=== PATIENT | female | born 1965 | race Caucasian/White ===

== ENCOUNTER → 2016-09-24 | Outpatient (REF) | payer BC ==
[~2016-09-24] MED LIST: FLUO20CA8 PO; LISI5TAB PO; MEGE20TA2 PO; METF1000 PO; VITA200015 PO
[2016-09-25 15:29] LABS: THYROID PEROXIDASE ANTIBODY < 28.0 U/ML (<60.0)
== END ==
LOC: M LAB REF 15:35
PROVIDERS: ATTEND Nurse Practitioner Adult Health
DX: E05.90 Thyrotoxicosis, unspecified without thyrotoxic crisis or storm (principal)

== ENCOUNTER → 2017-02-18 | Outpatient (REF) | payer BC | LOC: M LAB REF 17:12 | PROVIDERS: ATTEND Nurse Practitioner Adult Health | DX: E05.90 Thyrotoxicosis, unspecified without thyrotoxic crisis or storm (principal) ==

== ENCOUNTER → 2017-05-08 | Outpatient (CLI) | payer BC ==
[~2017-05-08] MED LIST changes: -FLUO20CA8 PO; +ISOVUE-370 76% 100ML VIAL (Q9967) As Ordered; -LISI5TAB PO; -MEGE20TA2 PO; -METF1000 PO; -VITA200015 PO
== END ==
LOC: M RAD 14:20
DX: Q89.2 Congenital malformations of other endocrine glands (principal)
CPT/HCPCS: Q9967

== ENCOUNTER → 2017-06-28 | Outpatient (REF) | payer BC | LOC: M LAB REF 17:15 | DX: N30.01 Acute cystitis with hematuria (principal) | CPT/HCPCS: 87186 ==

== ENCOUNTER 2017-07-14 05:41 | Day surgery (SDC) | payer BC ==
[2017-07-14 06:18] LABS: HEMATOCRIT 44.2 % (36.0-47.0); HEMOGLOBIN 14.3 g/dl (12.0-16.0); MEAN CORPUSCULAR HEMOGLOBIN 29.2 pg (27.0-33.0); MEAN CORPUSCULAR HGB CONC 32.4 g/dl (32.0-36.5); MEAN CORPUSCULAR VOLUME 90.4 fl (80.0-96.0); RED BLOOD COUNT 4.89 10^6/uL (4.00-5.40); RED CELL DISTRIBUTION WIDTH 14.9 % (11.5-14.5); WHITE BLOOD COUNT 7.8 10^3/uL (4.0-10.0)
[2017-07-14 06:36] LABS: PLATELET COUNT, AUTOMATED 75 10^3/uL (150-450)
[2017-07-14] MEDS ORDERED: ROCURONIUM BROMIDE 50 MG/5 ML VIAL As Ordered (06:39)
[2017-07-14] MEDS ORDERED: PROPOFOL 200 MG/20 ML VIAL As Ordered (06:39)
[2017-07-14] MEDS ORDERED: LIDOCAINE 2% INJ 100 MG/5 ML SDV (FOR ANES.) As Ordered (06:40)
[2017-07-14] MEDS ORDERED: fentaNYL 100 MCG/2 ML INJECTION (J3010) As Ordered (06:41)
[2017-07-14] MEDS ORDERED: MIDAZOLAM INJ 2 MG/2 ML VIAL (J2250) As Ordered (06:41)
[2017-07-14] MEDS ORDERED: dexameTHASONE 4 MG/ML 1ML VIAL (J1100) As Ordered (06:42)
[2017-07-14] MEDS: LR 1,000 ML IV (07:05)
[2017-07-14] MEDS ORDERED: HYDROCORTISONE 100 MG/2 ML VIAL (J1720) As Ordered (07:36)
[2017-07-14] MEDS ORDERED: SUCCINYLCHOLINE 100 MG/5 ML SYRINGE (J0330) As Ordered (07:37)
[2017-07-14] MEDS: LIDOCAINE W/EPINEPHRINE 1% 20ML VIAL As Ordered (07:57)
[2017-07-14] MEDS ORDERED: GLYCOPYRROLATE INJ 0.2 MG/ML 2 ML VIAL As Ordered (08:45)
[2017-07-14] MEDS ORDERED: ONDANSETRON 4MG/2ML VIAL (J2405) As Ordered (08:46)
[2017-07-14] MEDS ORDERED: PHENYLEPHRINE INJ 10MG/ML VIAL (J2370) As Ordered (08:46)
[2017-07-14] MEDS ORDERED: KETOROLAC 60 MG/2 ML VIAL (J1885) As Ordered (08:46)
[2017-07-14] MEDS ORDERED: NEOSTIGMINE 10 MG/10 ML VIAL (J2710) As Ordered (08:52)
[2017-07-14] MEDS: BACITRACIN OINT 30GM As Ordered (09:00)
[2017-07-14] MEDS ORDERED: PERCOCET 5MG/325MG TAB As Ordered (09:40)
[2017-07-14] MEDS: PERCOCET 5MG/325MG TAB PO (09:47)
[2017-07-14] MEDS ORDERED: ONDANSETRON 4MG/2ML VIAL (J2405) IV (10:00)
[2017-07-14] MEDS ORDERED: LR 1,000 ML IV (10:00)
[2017-07-14] MEDS ORDERED: fentaNYL 100 MCG/2 ML INJECTION (J3010) IV (10:00)
== END 2017-07-14 11:22 | disposition home or self-care (01) ==
LOC: M SDC 05:41
DX: Q89.2 Congenital malformations of other endocrine glands (principal); I10 Essential (primary) hypertension; E11.9 Type 2 diabetes mellitus without complications; G47.30 Sleep apnea, unspecified; Z98.84 Bariatric surgery status; Z79.52 Long term (current) use of systemic steroids; Z87.891 Personal history of nicotine dependence; Z88.2 Allergy status to sulfonamides; Z88.1 Allergy status to other antibiotic agents; F32.9 Major depressive disorder, single episode, unspecified; E03.9 Hypothyroidism, unspecified
CPT/HCPCS: 60280

== ENCOUNTER → 2017-07-19 | Outpatient (REF) | payer BC | LOC: M LAB REF 09:55 | DX: N39.0 Urinary tract infection, site not specified (principal) | CPT/HCPCS: 87186 ==

== ENCOUNTER → 2018-08-18 | Outpatient (REF) | payer BC ==
[~2018-08-18] MED LIST changes: +FLUO20CA8 PO; +FLUO40CA PO; -ISOVUE-370 76% 100ML VIAL (Q9967) As Ordered; +LEG1TAB PO; +LISI5TAB PO; +MAGN64TASA PO; +MEGE20TA2 PO; +METF1000 PO; +PRED20TA PO; +VITA200015 PO
== END ==
LOC: M LAB REF 16:46
PROVIDERS: ATTEND Nurse Practitioner Adult Health
DX: L24.9 Irritant contact dermatitis, unspecified cause (principal)

== ENCOUNTER 2019-03-11 06:59 | Outpatient (CLI) | payer BC ==
[~2019-03-11] VITALS: Ht 170.2 cm; Wt 108.5 kg
[2019-03-11] VITALS (9 sets, daily range): BP systolic 100–134; BP diastolic 61–74
[2019-03-11] MEDS ORDERED: ACETAMINOPHEN 650 MG PO PO ONE (08:00)
[2019-03-11] MEDS ORDERED: diphenhydrAMINE 25 MG PO PO ONE (08:00)
[2019-03-11] MEDS ORDERED: IMMUNE GLOBULIN 10% 40 GM in IV 1 EA IV ONE (08:30)
[2019-03-11] MEDS ORDERED: IMMUNE GLOBULIN 10% 80 GM in IV 1 EA IV ONE (08:30)
[2019-03-11] MEDS ORDERED: IMMUNE GLOBULIN 10% 20 GM in IV 1 EA IV ONE (08:30)
[2019-03-11] MEDS ORDERED: IMMUN40IV IV (08:44)
== END 2019-03-11 14:30 | disposition home or self-care (01) ==
LOC: M INFU 06:59
PROVIDERS: ATTEND Internal Medicine Hematology & Oncology
DX: D69.6 Thrombocytopenia, unspecified (principal); Z88.1 Allergy status to other antibiotic agents; Z88.2 Allergy status to sulfonamides
CPT/HCPCS: J1459 ×2

== ENCOUNTER 2019-03-12 07:30 | Outpatient (CLI) | payer BC ==
[~2019-03-12] VITALS: Ht 170.2 cm; Wt 108.5 kg
[2019-03-12] VITALS (9 sets, daily range): BP systolic 101–133; BP diastolic 55–93
[~2019-03-12 07:30] MED LIST changes: +IMMUN40IV IV
[2019-03-12] MEDS ORDERED: diphenhydrAMINE 25 MG CAP As Ordered ONE (08:09)
[2019-03-12] MEDS ORDERED: ACETAMINOPHEN TAB 650MG DOSE (2X325MG) As Ordered ONE (08:09)
[2019-03-12] MEDS ORDERED: diphenhydrAMINE 25 MG CAP PO ONE (08:15)
[2019-03-12] MEDS ORDERED: ACETAMINOPHEN TAB 650MG DOSE (2X325MG) PO ONE (08:15)
[2019-03-12] MEDS ORDERED: IMMUNE GLOBULIN 10% 80 GM in IV 1 EA IV ONE (08:45)
[2019-03-12] MEDS ORDERED: IMMUNE GLOBULIN 10% 40 GM in IV 1 EA IV ONE (08:45)
[2019-03-12] MEDS ORDERED: IMMUNE GLOBULIN 10% 20 GM in IV 1 EA IV ONE (08:45)
== END 2019-03-12 13:40 | disposition home or self-care (01) ==
LOC: M INFU 07:30
PROVIDERS: ATTEND Internal Medicine Hematology
DX: D69.6 Thrombocytopenia, unspecified (principal); Z88.1 Allergy status to other antibiotic agents; Z88.2 Allergy status to sulfonamides
CPT/HCPCS: 96365; 96366; J1459

== ENCOUNTER 2019-04-29 07:35 | Outpatient (CLI) | payer BC ==
[~2019-04-29] VITALS: Ht 170.2 cm; Wt 108.9 kg
[2019-04-29] VITALS (8 sets, daily range): BP systolic 93–127; BP diastolic 49–69
[2019-04-29] MEDS ORDERED: diphenhydrAMINE INJ 50MG/ML VIAL (J1200) IV ONE (08:00)
[2019-04-29] MEDS ORDERED: IMMUNE GLOBULIN 10% 20 GM in IV 1 EA IV ONE ×2 (08:00→08:15)
[2019-04-29] MEDS ORDERED: ACETAMINOPHEN TAB 650MG DOSE (2X325MG) PO ONE (08:00)
[2019-04-29] MEDS ORDERED: IMMUNE GLOBULIN 10% 80 GM in IV 1 EA IV ONE ×2 (08:00→08:30)
[2019-04-29] MEDS ORDERED: IMMUNE GLOBULIN 10% 10 GM in IV 1 EA IV ONE (08:15)
[2019-04-29 08:17] LABS: BASO % 0.4 % (0.0-1.0); EOS # 0.1 10^3/uL (0.0-0.5); HEMATOCRIT 38.3 % (36.0-47.0); HEMOGLOBIN 12.3 g/dl (12.0-15.5); LYMPH # 0.7 10^3/uL (1.5-5.0); LYMPH % 27.2 % (24.0-44.0); MEAN CORPUSCULAR HEMOGLOBIN 29.9 pg (27.0-33.0); MEAN CORPUSCULAR HGB CONC 32.1 g/dl (32.0-36.5); MEAN CORPUSCULAR VOLUME 93.2 fl (80.0-96.0); MONO # 0.2 10^3/uL (0.0-0.8); MONO % 6.7 % (0.0-5.0); NEUTROPHILS # 1.6 10^3/uL (1.5-8.5); NEUTROPHILS % 63.3 % (36.0-66.0); RED BLOOD COUNT 4.11 10^6/uL (4.00-5.40); WHITE BLOOD COUNT 2.5 10^3/uL (4.0-10.0)
[2019-04-29 08:28] LABS: PLATELET COUNT, AUTOMATED 40 10^3/uL (150-450)
[2019-04-29 08:40] LABS: ALBUMIN 3.3 GM/DL (3.2-5.2); ALT/SGPT 27 U/L (12-78); BILIRUBIN,TOTAL 0.5 MG/DL (0.2-1.0); BLOOD UREA NITROGEN 23 MG/DL (7-18); CALCIUM LEVEL 8.4 MG/DL (8.5-10.1); CARBON DIOXIDE LEVEL 31 MEQ/L (21-32); CHLORIDE LEVEL 107 MEQ/L (98-107); CREATININE FOR GFR 0.62 MG/DL (0.55-1.30); GLOMERULAR FILTRATION RATE > 60.0 (>51); GLUCOSE, FASTING 86 MG/DL (70-100); POTASSIUM SERUM 4.3 MEQ/L (3.5-5.1); SODIUM LEVEL 144 MEQ/L (136-145); TOTAL PROTEIN 6.8 GM/DL (6.4-8.2)
== END 2019-04-29 14:45 | disposition home or self-care (01) ==
LOC: M INFU 07:35
PROVIDERS: ATTEND Internal Medicine Hematology & Oncology
DX: D69.3 Immune thrombocytopenic purpura (principal); Z88.1 Allergy status to other antibiotic agents; Z88.2 Allergy status to sulfonamides
CPT/HCPCS: 36415; 80053; 85025; 85049; 85055; 96365; 96366; 96375; J1200; J1459

== ENCOUNTER 2019-04-30 07:00 | Outpatient (CLI) | payer BC ==
[2019-04-30] VITALS (8 sets, daily range): BP systolic 96–136; BP diastolic 55–88
[~2019-04-30] VITALS: Ht 170.2 cm; Wt 108.9 kg
[2019-04-30] MEDS ORDERED: diphenhydrAMINE INJ 50MG/ML VIAL (J1200) IV ONE (07:15)
[2019-04-30] MEDS ORDERED: ACETAMINOPHEN TAB 650MG DOSE (2X325MG) PO ONE (07:15)
[2019-04-30] MEDS ORDERED: IMMUNE GLOBULIN 10% 80 GM in IV 1 EA IV ONE (07:30)
[2019-04-30] MEDS ORDERED: IMMUNE GLOBULIN 10% 10 GM in IV 1 EA IV ONE (07:30)
[2019-04-30] MEDS ORDERED: IMMUNE GLOBULIN 10% 20 GM in IV 1 EA IV ONE (07:30)
== END 2019-04-30 13:40 | disposition home or self-care (01) ==
LOC: M INFU 07:00
PROVIDERS: ATTEND Internal Medicine Hematology & Oncology
DX: D69.3 Immune thrombocytopenic purpura (principal); Z88.1 Allergy status to other antibiotic agents; Z88.2 Allergy status to sulfonamides
CPT/HCPCS: 96365; 96366; 96375; J1200; J1459

== ENCOUNTER 2019-05-03 07:33 | Outpatient (CLI) | payer BC ==
[~2019-05-03] VITALS: Ht 170.2 cm; Wt 108.9 kg
[2019-05-03] VITALS (9 sets, daily range): BP systolic 18–155; BP diastolic 59–86
[2019-05-03 08:00] LABS: BASO % 0.8 % (0.0-1.0); EOS % 1.5 % (0.0-3.0); HEMATOCRIT 38.1 % (36.0-47.0); HEMOGLOBIN 11.9 g/dl (12.0-15.5); LYMPH # 0.6 10^3/uL (1.5-5.0); LYMPH % 42.9 % (24.0-44.0); MEAN CORPUSCULAR HEMOGLOBIN 29.3 pg (27.0-33.0); MEAN CORPUSCULAR HGB CONC 31.2 g/dl (32.0-36.5); MEAN CORPUSCULAR VOLUME 93.8 fl (80.0-96.0); MONO # 0.2 10^3/uL (0.0-0.8); MONO % 13.5 % (0.0-5.0); NEUTROPHILS % 41.3 % (36.0-66.0); RED BLOOD COUNT 4.06 10^6/uL (4.00-5.40)
[2019-05-03 08:25] LABS: NEUTROPHILS # 0.6 10^3/uL (1.5-8.5); PLATELET COUNT, AUTOMATED 34 10^3/uL (150-450); WHITE BLOOD COUNT 1.3 10^3/uL (4.0-10.0)
[2019-05-03] MEDS ORDERED: IMMUNE GLOBULIN 10% 10 GM in IV 1 EA IV ONE (09:00)
[2019-05-03] MEDS ORDERED: diphenhydrAMINE INJ 50MG/ML VIAL (J1200) IV ONE (09:00)
[2019-05-03] MEDS ORDERED: ACETAMINOPHEN TAB 650MG DOSE (2X325MG) PO ONE (09:00)
[2019-05-03] MEDS ORDERED: IMMUNE GLOBULIN 10% 80 GM in IV 1 EA IV ONE (09:00)
[2019-05-03] MEDS ORDERED: IMMUNE GLOBULIN 10% 20 GM in IV 1 EA IV ONE (09:00)
== END 2019-05-03 15:00 | disposition home or self-care (01) ==
LOC: M INFU 07:33
PROVIDERS: ATTEND Internal Medicine Hematology & Oncology
DX: D69.3 Immune thrombocytopenic purpura (principal); Z88.1 Allergy status to other antibiotic agents; Z88.2 Allergy status to sulfonamides
CPT/HCPCS: 85025; 85049; 85055; 96365; 96366; J1200; J1459

== ENCOUNTER → 2019-06-23 | Outpatient (CLI) | payer BC ==
[2019-06-23 17:52] LABS: ALBUMIN 3.6 GM/DL (3.2-5.2); ALT/SGPT 27 U/L (12-78); BILIRUBIN,DIRECT 0.2 MG/DL (0.0-0.2); BILIRUBIN,TOTAL 0.6 MG/DL (0.2-1.0); TOTAL PROTEIN 7.4 GM/DL (6.4-8.2)
[2019-06-25 10:24] LABS: HEPATITIS B SURFACE ANTIBODY POSITIVE (POSITIVE)
[2019-06-25 10:35] LABS: HEPATITIS B SURFACE ANTIGEN NEGATIVE (NEGATIVE)
[2019-06-25 11:03] LABS: HEPATITIS B CORE ANTIBODY IGM NEGATIVE (NEGATIVE)
== END ==
LOC: M LAB 16:08
PROVIDERS: ATTEND Internal Medicine Gastroenterology
DX: R76.8 Other specified abnormal immunological findings in serum (principal); D69.3 Immune thrombocytopenic purpura

== ENCOUNTER → 2020-10-02 | Outpatient (REF) | payer BC ==
[2020-10-02 17:23] LABS: FREE T3 2.6 PG/ML (2.2-4.0)
[2020-10-02 17:24] LABS: FOLLICLE STIMULATING HORMONE 43.4 mIU/mL; LUTEINIZING HORMONE 29.9 mIU/mL
== END ==
LOC: M LAB REF 16:27
PROVIDERS: ATTEND Nurse Practitioner Adult Health
DX: N95.1 Menopausal and female climacteric states (principal)

== ENCOUNTER → 2021-04-23 | Outpatient (REF) | payer BC ==
[2021-04-23 17:26] LABS: AMYLASE 28 U/L (25-115); LIPASE 85 U/L (73-393)
== END ==
LOC: M LAB REF 16:32
PROVIDERS: ATTEND Nurse Practitioner Adult Health
DX: R10.9 Unspecified abdominal pain (principal)

== ENCOUNTER → 2021-05-08 | Outpatient (CLI) | payer BC ==
[~2021-05-08] MED LIST changes: +GASTROGRAFIN SOLUTION 30ML (Q9963) As Ordered ONE
== END ==
LOC: M RAD 13:04
PROVIDERS: ATTEND Nurse Practitioner Adult Health
DX: R16.1 Splenomegaly, not elsewhere classified (principal); K80.20 Calculus of gallbladder without cholecystitis without obstruction; I88.0 Nonspecific mesenteric lymphadenitis; R10.9 Unspecified abdominal pain
CPT/HCPCS: 74176; Q9963

== ENCOUNTER → 2021-06-13 | Outpatient (CLI) | payer BC ==
[~2021-06-13] MED LIST changes: -GASTROGRAFIN SOLUTION 30ML (Q9963) As Ordered ONE; +PROHANCE 279.3MG/ML 15ML VIAL As Ordered ONE; +PROHANCE 279.3MG/ML 5ML VIAL As Ordered ONE
== END ==
LOC: M RAD 10:22
PROVIDERS: ATTEND Internal Medicine Gastroenterology
DX: R93.89 Abnormal findings on diagnostic imaging of other specified body structures (principal); K76.6 Portal hypertension; I81 Portal vein thrombosis; R16.2 Hepatomegaly with splenomegaly, not elsewhere classified
CPT/HCPCS: 74183; A9576

== ENCOUNTER 2022-05-15 12:00 | Outpatient (CLI) | payer BC ==
[~2022-05-15] VITALS: Ht 167.6 cm; Wt 120.0 kg
[~2022-05-15 12:00] MED LIST changes: -PROHANCE 279.3MG/ML 15ML VIAL As Ordered ONE; -PROHANCE 279.3MG/ML 5ML VIAL As Ordered ONE
[2022-05-15 12:15] VITALS: BP 129/66
[2022-05-15] MEDS ORDERED: IRON SUCROSE 25 MG in NS 23.75 ML IV ONE (12:30)
[2022-05-15] MEDS ORDERED: IRON SUCROSE 275 MG in NS 250 ML IV ONE (12:30)
[2022-05-15] MEDS ORDERED: CYCL5TAB PO (12:34)
[2022-05-15] MEDS ORDERED: TIRZ7.5P SQ (12:34)
[2022-05-15] MEDS ORDERED: TRAM50TA2 PO (12:34)
[2022-05-15 13:58] VITALS: BP 146/76
[2022-05-15 15:00] VITALS: BP 126/65
[2022-05-15 16:00] VITALS: BP 125/64
[2022-05-15 16:43] VITALS: BP 138/82
== END 2022-05-15 16:45 ==
LOC: M INFU 12:00
PROVIDERS: ATTEND Internal Medicine
DX: D50.9 Iron deficiency anemia, unspecified (principal); Z88.2 Allergy status to sulfonamides; Z81.1 Family history of alcohol abuse and dependence
CPT/HCPCS: 96365; 96366; J1756

== ENCOUNTER 2022-05-20 12:25 | Outpatient (CLI) | payer BC ==
[2022-05-20 12:25] VITALS: BP 142/67
[~2022-05-20 12:25] MED LIST changes: +CYCL5TAB PO; +TIRZ7.5P SQ; +TRAM50TA2 PO
[2022-05-20] MEDS ORDERED: IRON SUCROSE 300 MG in NS 250 ML OVER 90 MIN. IV ONE (12:30)
[2022-05-20 14:23] VITALS: BP 150/72
== END 2022-05-20 14:25 | disposition home or self-care (01) ==
LOC: M INFU 12:25
PROVIDERS: ATTEND Internal Medicine
DX: D50.9 Iron deficiency anemia, unspecified (principal); Z88.2 Allergy status to sulfonamides; Z88.1 Allergy status to other antibiotic agents

== ENCOUNTER 2022-05-24 11:35 | Outpatient (CLI) | payer BC ==
[~2022-05-24] VITALS: Ht 167.6 cm; Wt 120.0 kg
[2022-05-24 11:45] VITALS: BP 127/61
[2022-05-24] MEDS ORDERED: IRON SUCROSE 300 MG in NS 250 ML OVER 90 MIN. IV ONE (12:00)
[2022-05-24 13:58] VITALS: BP 123/74
== END 2022-05-24 14:00 | disposition home or self-care (01) ==
LOC: M INFU 11:35
PROVIDERS: ATTEND Nurse Practitioner Adult Health
DX: D50.9 Iron deficiency anemia, unspecified (principal); Z88.1 Allergy status to other antibiotic agents; Z88.2 Allergy status to sulfonamides
CPT/HCPCS: 96365; 96366; J1756

== ENCOUNTER → 2022-08-08 | Outpatient (CLI) | payer BC | LOC: M WHC 14:37 | PROVIDERS: ATTEND Nurse Practitioner Adult Health | DX: Z12.31 Encounter for screening mammogram for malignant neoplasm of breast (principal) ==

== ENCOUNTER → 2023-02-03 | Outpatient (CLI) | payer BC | LOC: M WHC 07:04 | PROVIDERS: ATTEND Internal Medicine Gastroenterology | DX: K74.60 Unspecified cirrhosis of liver (principal); I85.00 Esophageal varices without bleeding; R93.3 Abnormal findings on diagnostic imaging of other parts of digestive tract ==

== ENCOUNTER → 2023-07-24 | Outpatient (CLI) | payer BC | LOC: M RAD 07:59 | PROVIDERS: ATTEND Internal Medicine Gastroenterology | DX: K74.60 Unspecified cirrhosis of liver (principal); N13.30 Unspecified hydronephrosis ==

== ENCOUNTER → 2023-12-24 | Outpatient (REF) | payer BC | LOC: M LAB REF 16:18 | PROVIDERS: ATTEND Nurse Practitioner Adult Health | DX: N39.0 Urinary tract infection, site not specified (principal) ==

== ENCOUNTER → 2024-01-15 | Outpatient (CLI) | payer BC | LOC: M WHC 10:08 | PROVIDERS: ATTEND Nurse Practitioner Adult Health | DX: Z12.31 Encounter for screening mammogram for malignant neoplasm of breast (principal) ==

== ENCOUNTER → 2024-03-01 | Outpatient (CLI) | payer BC ==
[~2024-03-01] MED LIST changes: -CYCL5TAB PO; +CYCL5TAB4 PO
== END ==
LOC: M RAD 12:19
PROVIDERS: ATTEND Orthopaedic Surgery
DX: M79.604 Pain in right leg (principal); M79.89 Other specified soft tissue disorders

== ENCOUNTER → 2024-05-10 | Outpatient (CLI) | payer BC | LOC: M RAD 07:33 | PROVIDERS: ATTEND Internal Medicine Gastroenterology | DX: K74.60 Unspecified cirrhosis of liver (principal); R18.8 Other ascites; K80.20 Calculus of gallbladder without cholecystitis without obstruction; N13.2 Hydronephrosis with renal and ureteral calculous obstruction ==

== ENCOUNTER → 2024-06-21 | Outpatient (CLI) | payer BC | LOC: M SLEEP HO 10:44 | PROVIDERS: ATTEND Nurse Practitioner Adult Health | DX: G47.33 Obstructive sleep apnea (adult) (pediatric) (principal) ==

== ENCOUNTER → 2024-07-06 | Outpatient (CLI) | payer BC ==
[~2024-07-06] MED LIST changes: +ISOVUE-370 76% 100ML VIAL ONE
== END ==
LOC: M PLAIMG 08:41
PROVIDERS: ATTEND Physician Assistant
DX: N13.30 Unspecified hydronephrosis (principal)
CPT/HCPCS: 74178; Q9967

== ENCOUNTER → 2024-12-10 | Outpatient (REF) | payer BC ==
[~2024-12-10] MED LIST changes: -ISOVUE-370 76% 100ML VIAL ONE
[2024-12-10 12:15] LABS: INR 1.24
== END ==
LOC: M LAB REF 11:55
PROVIDERS: ATTEND Nurse Practitioner Adult Health
DX: K74.60 Unspecified cirrhosis of liver (principal); D69.3 Immune thrombocytopenic purpura

== ENCOUNTER → 2024-12-13 | Outpatient (CLI) | payer BC | LOC: M WUC 14:47 | PROVIDERS: ATTEND Nurse Practitioner Adult Health | DX: M79.674 Pain in right toe(s) (principal) ==

== ENCOUNTER → 2025-03-07 | Outpatient (REF) | payer BC | LOC: M LAB REF 12:22 | PROVIDERS: ATTEND Nurse Practitioner Adult Health | DX: K74.60 Unspecified cirrhosis of liver (principal) ==

== ENCOUNTER → 2025-03-14 | Outpatient (CLI) | payer BC ==
[~2025-03-14] MED LIST changes: +ACETAMINOPHEN 325 MG TAB PO PRN
[2025-03-14 11:05] VITALS: TEMP 98.7
[2025-03-14 13:20] VITALS: BP 121/63; O2SAT 97
[2025-03-14 13:21] LABS: APPEARANCE, BODY FLUID CLEAR (CLEAR); ASCITES FL COLOR YELLOW (COLORLESS); SOURCE, BODY FLUID ASCITES
== END ==
LOC: M IRPRO 10:54
PROVIDERS: ATTEND Nurse Practitioner Adult Health
DX: R18.8 Other ascites (principal); K74.60 Unspecified cirrhosis of liver

== ENCOUNTER → 2025-03-22 | Outpatient (REF) | payer BC ==
[~2025-03-22] MED LIST changes: -ACETAMINOPHEN 325 MG TAB PO PRN
[2025-03-22 17:34] LABS: INR 1.26
== END ==
LOC: M LAB REF 17:04
PROVIDERS: ATTEND Nurse Practitioner Adult Health
DX: K74.60 Unspecified cirrhosis of liver (principal)

== ENCOUNTER → 2025-03-30 | Outpatient (CLI) | payer BC | LOC: M RAD 07:16 | PROVIDERS: ATTEND Internal Medicine Gastroenterology | DX: K74.60 Unspecified cirrhosis of liver (principal); I86.4 Gastric varices ==